=== PATIENT | male | born 1990 | race Two or more races ===

== ENCOUNTER 2022-04-01 15:29 | Emergency (ER) | payer OTHER ==
[~2022-04-01] VITALS: Ht 180.3 cm; Wt 133.9 kg
[2022-04-01] MEDS ORDERED: DexAMETHasone SOD PHOS 10MG/1ML VIAL INJ PO ONE (17:15)
[2022-04-01] MEDS ORDERED: IPRATROPIUM BROM 0.5 MG/2.5ML INH SOL NEB ONE (17:15)
[2022-04-01] MEDS ORDERED: ALBUTEROL SULF 2.5 MG/0.5ML(0.5%) NEB SOLN NEB ONE (17:15)
[2022-04-01 17:32] VITALS: BP 146/90
[2022-04-01] MEDS ORDERED: ACET1CAP14 PO (18:12)
[2022-04-01] MEDS ORDERED: KETOROLAC TROMETH 30 MG/ML 1ML VIAL IM ONE (18:15)
== END 2022-04-01 18:42 | disposition home or self-care (01) ==
LOC: ER 15:29
DX: S96.912A Strain of unspecified muscle and tendon at ankle and foot level, left foot, initial encounter (principal); J45.909 Unspecified asthma, uncomplicated; X58.XXXA Exposure to other specified factors, initial encounter; Y93.01 Activity, walking, marching and hiking; Y92.89 Other specified places as the place of occurrence of the external cause; Y99.8 Other external cause status
CPT/HCPCS: 93971; 96372; 99285; J1885